=== PATIENT | female | born 1940 | race Caucasian/White ===

== ENCOUNTER 2016-10-30 02:11 | Inpatient (IN) | payer MEDICARE, OTHER ==
--- NOTE | ~2016-10-30 | CN ---
Consultation Report [facility] [address] [place]. [address] NAME: HARLEY BOLTON : 42 STATUS : ADM IN [facility]#: [id number] AGE: 76 ADM/REG DATE : 10/30/16 MR#: [id number] REPORT SERV DATE: 10/30/16 DICTATED BY: MARIE ACEVEDO DATE: 10/30/16 REPORT STATUS : Draft TRANSCRIBED BY: MODL DATE: 10/30/16 HOSPITALIST CONSULTATION DATE OF CONSULTATION: 10/30/2016 REASON FOR CONSULTATION: Medical management per Dr. Brady. HISTORY OF PRESENT ILLNESS: This is an alert and oriented 76-year-old female, who is currently in the ER awaiting room assignment for admission to Dr. Brady for a C2 (hangman's) fracture. She has a cervical collar in place and reports good pain control at this time. Her injury occurred due to a low fall from bed to floor this evening. Hospitalist Service has been consulted for medical management during this hospitalization. The patient is a poor historian due to "memory problems" related to possible remote stroke versus brain tumor. She is also currently unaware of her daily medications but confirms her pharmacy was previously [facility] and has recently been changed to [facility] for insurance reasons. The patient is also home O2 dependent for her COPD, on 3 L nasal cannula. At this time, the patient denies all symptoms including denying chest pain, palpitations, dyspnea, headache, loss of consciousness, dizziness, abdominal pain, nausea, vomiting, or pain in her extremities. She denies known syncope or near syncope, headache, dizziness, or LOC prior to the fall at home. The patient reports frequent falls for several years since her brain surgery in 2006. 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 PAST MEDICAL HISTORY: Significant for: 1. COPD. 2. CHF. 3. Atrial fibrillation. 4. PVD. 5. Hypertension. 6. Dyslipidemia. 7. Hypothyroidism. 8. Anemia. 9. Anxiety. 10.CVA versus TIA. 11.Brain tumor. 12.Frequent falls. PAST SURGICAL HISTORY: Significant for: 1. Partial hysterectomy, 1966. 2. Appendectomy, as a child. 3. CABG x3 vessels/cath, 1997. 4. Left carotid endarterectomy, 10/12/2003. 5. Right carotid endarterectomy, 11/26/2003. Consultation Report [place] [id number] [place]. [address] NAME: HARLEY BOLTON : 42 STATUS : ADM IN PAT#: [id number] AGE: 76 ADM/REG DATE : 10/30/16 MR#: [id number] REPORT SERV DATE: 10/30/16 DICTATED BY: MARIE ACEVEDO DATE: 10/30/16 REPORT STATUS : Draft TRANSCRIBED BY: MODL DATE: 10/30/16 6. Craniotomy post traumatic fall, 2008. 7. Multiple cardiac caths with the last one 04/20/2008. 8. Angioplasty, 2008. 9. Open thrombectomy, right femoral-popliteal with stent, 2011. 10.Left lower extremity thrombectomy, 2008. 11.Multiple arteriograms, most recent 2000. 12.Right and left iliofemoral bypass surgeries, both 2001. 13.PTCA, 1998. 14.Aortogram and angioplasty, completed 12/2015. 15.Brain surgery with tumor removal and stent placement. The patient's PCP is Dr. Anita Rizzo, Dr. Funes is her production engine repairer, and her vascular surgeon is Dr. Saini. She denies having a subject scientific research at this time. SOCIAL HISTORY: The patient is and lives with a friend. 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 She quit smoking in approximately 2006 and denies alcohol or illicit drug use. FAMILY HISTORY: Mother and father both had known CAD and are both . ALLERGIES: REPORTED AT THIS TIME NO KNOWN ALLERGIES BUT RECORDS REVIEW INDICATES PREVIOUS ALLERGIES TO SHELLFISH AND CODEINE. HOME MEDICATIONS: The patient is unaware of her current home medications. She reports her pharmacy has recently been changed from [facility] to [facility]. Most recent inpatient record was reviewed as well. With those, medications included: 1. Xanax 1 mg p.o. b.i.d. to t.i.d. p.r.n. anxiety, confirmed by [facility] at today's date. 2. Wellbutrin XL 150 mg p.o. q.a.m., confirmed by [facility] as of today's date. 3. Lortab 7.5/325 one p.o. daily, confirmed by [facility] on today's date. 4. Coreg 25 mg p.o. b.i.d. 5. Xarelto 20 mg p.o. daily. 6. Lipitor 20 mg p.o. at bedtime. 7. Norvasc 10 mg p.o. daily. 8. L-thyroxine 75 mg p.o. q.a.m. 9. Lasix 80 mg p.o. daily. 10.ProAir inhaler 2 puffs q.4 hours p.r.n. 11.Spiriva HandiHaler one cap inhaled daily. 12.Klor-Con 10 mEq p.o. q.a.m. 13.Nexium 40 mg p.o. daily. 14.Aricept 10 mg p.o. at bedtime. 15.Aspirin 325 mg p.o. daily. REVIEW OF SYSTEMS: A complete 10-point review of systems was negative except as per HPI. Consultation Report [address] [place]. [address] NAME: HARLEY BOLTON : 42 STATUS : ADM IN PAT#: [id number] AGE: 76 ADM/REG DATE : 10/30/16 MR#: [id number] REPORT SERV DATE: 10/30/16 DICTATED BY: MARIE ACEVEDO DATE: 10/30/16 REPORT STATUS : Draft TRANSCRIBED BY: YAMILET DATE: 10/30/16 PHYSICAL EXAMINATION: VITAL SIGNS: T 97.7, P 95, RR 14, BP 134/53, and SpO2 of 94% on 3 L nasal cannula. GENERAL: A well-appearing female in no acute distress. NEUROLOGIC: Alert and oriented x3 without focal deficit. HEENT: Normocephalic. Dried blood noted at mouth without visible trauma. No broken teeth noted. No open wounds noted. NECK: Supple. No JVD. C-collar in place. LUNGS: CTA in all lung cooley. Diminished in bilateral bases with normal respiratory effort. CV: Irregular rhythm, controlled rate. S1, S2 auscultated. ABDOMEN: Soft, round, nontender. Bowel sounds active in all quadrants. No masses. EXTREMITIES: No cyanosis or edema. Cap refill within normal limits. PSYCHIATRIC: Normal affect. SKIN: Clean, dry, and intact with mucous membranes pink and moist. PERTINENT LABORATORY DATA: Potassium low at 3.3. PERTINENT IMAGING: CT confirms C2 fracture/hangman's fracture. EKG, per the ER physician read, shows controlled atrial fibrillation. Previous echo documented on 11/26/2015 shows LVEF 44.8%. ASSESSMENT AND PLAN: 1. Chronic obstructive pulmonary disease, this is chronic and the patient is home O2 dependent. We will continue her home medications once they are confirmed, place her on a bronchodilator protocol while here, and place her on oxygen to maintain a sat of greater than or equal to 92%. 2. Congestive heart failure, again this is chronic with the last noted EF of approximately 45% in 2016. Again, once home medications are confirmed, we will continue those home medications. At this time, we will start her on Coreg 12.5 mg p.o. b.i.d. We will put her on med/surg telemetry and we will monitor her labs. 3. Atrial fibrillation. This is chronic and controlled. We will hold her Xarelto for possible surgery. Once home medications are confirmed and it is safe to restart those, we will continue her home medications again having her on med/surg telemetry and monitoring her labs. 4. Anxiety, this is chronic. We will continue her home medications, provide p.r.n. support, and monitor her throughout this stay. 5. Peripheral vascular disease, this is chronic. Again, once home medications are confirmed, we will continue those. Start medications as per her most recent list at this time and monitor her labs. 6. Anemia, again this is chronic, and as above, we will continue her home medications once they are confirmed. We will also monitor her labs and transfusing as necessary. 7. Dyslipidemia, again this is chronic. We will continue the medications as per her most recent list and monitor her labs making any changes as needed once home medications are confirmed. 8. Hypertension, again this is chronic. We will plan to continue her home medications as Consultation Report [address] [place]. [address] NAME: HARLEY BOLTON : 42 STATUS : ADM IN PAT#: [id number] AGE: 76 ADM/REG DATE : 10/30/16 MR#: [id number] REPORT SERV DATE: 10/30/16 DICTATED BY: MARIE ACEVEDO DATE: 10/30/16 REPORT STATUS : Draft TRANSCRIBED BY: YAMILET DATE: 10/30/16 per her most recent list making any changes as needed once home medications are confirmed, we will monitor her labs and provide p.r.n. coverage for her blood pressure. 9. Hypothyroidism, again this is chronic. We are unable to determine when her most recent lab levels were checked. We will monitor those lab levels and add home medications once those have been resulted, we will monitor her closely with this. 10.Cerebrovascular accident versus transient ischemic attack, there is a remote history of this with no residual deficits except for possible "memory problems." We will monitor her carefully, place her on med/surg telemetry, and continue home medications per the most recent list updating as needed once home medications are confirmed. 11.Brain tumor, again this is remote. With the patient reporting frequent falls and "memory problems" as a result of this, we will monitor her closely, make sure she is on strict fall precautions. At this time, she is noted to be on bed rest per Dr. Brady. We will monitor her closely for this and obtain imaging as necessary and indicated. Thank you for this consult. We are pleased to follow this patient with you. This consult was completed through thorough review of [facility], old records, [facility], and current chart as well as thorough and appropriate interview with the patient. [facility]/YAMILET Marie Acevedo NP / [id number] CC: Gary Nickerson II, MD
--- NOTE | ~2016-10-30 | DS ---
Discharge Summary [facility] [address] [place]. [address] NAME: HARLEY BOLTON : 42 STATUS : DIS IN PAT#: [id number] AGE: 76 ADM/REG DATE : 10/30/16 MR#: [id number] REPORT SERV DATE: 11/16/16 DICTATED BY: MARIA FERNANDA BRADY II DATE: 11/15/16 REPORT STATUS : Draft TRANSCRIBED BY: YAMILET DATE: 11/15/16 Data Collection from hospitalization DISCHARGE DIAGNOSES: 1. Fall with C2 fracture. 2. Hypertension. 3. Chronic obstructive pulmonary disease. 4. Congestive heart failure. 5. Atrial fibrillation. 6. Peripheral vascular disease. 7. Hypothyroidism. 8. Anemia. 9. History of brain tumor. 10.Former smoker. CONSULTATIONS: Marie Acevedo NP PROCEDURES PERFORMED: 1. CT scan of the brain without contrast on 10/30/2016. 2. CT scan of the cervical spine without contrast on 10/30/2016. 3. CTA of the neck on 10/30/2016. MEDICATIONS: ProAir two puffs via inhaler every four hours as needed, Xanax 1 mg three times a day as needed, Norvasc 10 mg daily, Lipitor 20 mg at bedtime, Wellbutrin XL 150 mg daily, Coreg 25 mg twice a day, vitamin D 5000 units daily, Colace 100 mg twice a day, Nexium 40 mg daily, Prozac 60 mg daily, Lasix 40 mg daily, levothyroxine 75 mcg daily, Nitrostat 0.4 mg sublingually as needed, K-Lyte/Cl 25 mEq daily, Xarelto as instructed, Spiriva HandiHaler one capsule via inhaler daily, vitamin E 600 units daily, and Percocet 5 mg every six hours as needed for pain. CONDITION AT DISCHARGE: Stable. DISPOSITION: The patient was discharged home to be followed by home health care on a regular diet with activities as instructed. She would follow up with me three weeks following discharge. She would follow up with Dr. Lori Rizzo two weeks following discharge. She would follow up with her fuel verification technician four to eight weeks following discharge and would have an outpatient sleep study four to eight weeks following discharge. HOSPITAL COURSE: This is a 76-year-old female who lives in [place] and fell out of bed. She reported severe neck pain. She denied any radiating arm pain or weakness in her arms that was of new onset. She was felt to likely have osteoporosis and a C2 fracture. She is not a very good surgical candidate. We would prefer to try and treat her nonoperatively. Her living situation was not ideal to be able to return straight home following the hospital and she may need to go to inpatient rehabilitation. She was admitted to the hospital at this time for further evaluation and treatment. Upon admission, she was seen by Marie Acevedo regarding medical management. A cervical collar was in place. She reported good pain control. She had reported frequent falls since Discharge Summary [place] [id number] [facility] [place]. [address] NAME: HARLEY BOLTON : 42 STATUS : DIS IN PAT#: [id number] AGE: 76 ADM/REG DATE : 10/30/16 MR#: [id number] REPORT SERV DATE: 11/16/16 DICTATED BY: MARIA FERNANDA BRADY II DATE: 11/15/16 REPORT STATUS : Draft TRANSCRIBED BY: YAMILET DATE: 11/15/162006 when she had brain surgery. She does have a history of neuropathy in her toes and feet due to vascular disease. CT scan confirmed C2 fracture. EKG showed controlled atrial fibrillation. She is home O2 dependent. Her home medications were going to be continued. She was placed on bronchodilator protocol. She would be placed on oxygen to maintain saturation greater than or equal to 92%. She was started on Coreg. Xarelto was held. She would be transfused as necessary. Speech/Language Pathology performed a bedside swallow study. Aspiration precautions were in place. She had no overt signs or symptoms of aspiration. The following day, telemetry revealed atrial fibrillation. The patient usually takes sublingual nitroglycerin at home two nights per week for chest pain. Subcutaneous heparin was going to be given for DVT prophylaxis. Xarelto was held. Her chest pain had resolved. On 11/01/2016, she was resting comfortably. She complained of severe neck pain. Potassium supplementation was given. Xanax was adjusted. On 11/02/2016, she denied chest pain or shortness of breath. She continued to complain of neck pain. She had good oral intake. She continued to progress. Discharge planning was performed. Xarelto was restarted at a decreased dose. H and H remained stable. She refused to consider rehabilitation and wanted to go home. She was evaluated by Physical Therapy. She was encouraged to at least get a Life Alert. She reported little benefit from Percocet. She preferred to be back on her home regimen of hydrocodone and Xanax. The collar was going to remain in place. On 11/04/2016, she said she was feeling better. She was more alert. She had a new neck brace in place. Discharge instructions were given. Due to her improved and stable condition, she was discharged home with the above-stated instructions. Information collected by: Alexsandra Braun I submit the above information as my discharge summary. TG/MODL Maria Fernanda Brady II, M.D. / [id number] CC: Gary Nickerson II, MD
--- NOTE | ~2016-10-30 | HP ---
History And Physical [place] [id number] [facility] [place]. [address] NAME: HARLEY BOLTON : 42 STATUS : ADM IN [facility]#: [id number] AGE: 76 ADM/REG DATE : 10/30/16 MR#: [id number] REPORT SERV DATE: 10/31/16 DICTATED BY: MARIA FERNANDA BRADY II DATE: 10/31/16 REPORT STATUS : Draft TRANSCRIBED BY: YAMILET DATE: 10/31/16 DATE OF ADMISSION: 10/30/2016 CHIEF COMPLAINT: Neck pain. HISTORY OF PRESENT ILLNESS: A friendly 76-year-old female, who lives in [place], who fell out of bed. She reports severe neck pain. She denies any radiating arm pain or weakness in her arms that is new onset. PAST MEDICAL HISTORY: COPD, CHF, atrial fib, PVD, hypertension, hypothyroidism, anemia, anxiety, history of brain tumor, and frequent falls. SOCIAL HISTORY: She is and lives with a friend in [place]. She quit smoking. REVIEW OF SYSTEMS: Please see the ER triage sheet dated 10/30/2016. I have reviewed it and agree with it. MEDICATIONS: Please see the MAR. PHYSICAL EXAMINATION: GENERAL: Reveals a female, in no acute distress. She is awake, alert, and oriented. She is on nasal cannula. She is overall in no acute distress. NEUROLOGIC: She is awake, alert, oriented and moving all extremities well. NECK: Her neck is in a collar. CHEST: Reveals no stridor on inspiration or expiration. CARDIOVASCULAR: Regular rate and when I palpate the radial pulse. ABDOMEN: Soft. SKIN: Intact. PSYCHIATRIC: Normal affect. CT scan shows a type 3 odontoid fracture with approximately 3 mm of anterior translation, but there is also a pedicle fracture. ASSESSMENT AND PLAN: 76-year-old female with likely osteoporosis and a C2 fracture. She is not a very good surgical candidate. I would prefer to try and treat her nonoperatively. Her living situation is not ideal to be able to return straight home following the hospital, so she may need to go to inpatient rehab. We will plan on having Physical Therapy see her and however, we will consider surgery as a last resort. [facility]/YAMILET Maria Fernanda Brady II, M.D. History And Physical [address] [place] [address] NAME: HARLEY BOLTON : 42 STATUS : ADM IN PAT#: [id number] AGE: 76 ADM/REG DATE : 10/30/16 MR#: [id number] REPORT SERV DATE: 10/31/16 DICTATED BY: MARIA FERNANDA BRADY II DATE: 10/31/16 REPORT STATUS : Draft TRANSCRIBED BY: MODL DATE: 10/31/16 / [id number] CC: Gary Nickerson II, MD
[2016-10-30 01:57] LABS: BASOPHILS 0.1 %; BASOPHILS ABSOLUTE 0.01 10/3/uL (0.0-0.16); EOSINOPHILS 1.9 %; EOSINOPHILS ABSOLUTE 0.15 10/3/uL (0.0-0.53); HEMOGLOBIN 9.2 g/dL (12.0-16.0); IMMATURE GRANULOCYTES 0.4 %; IMMATURE GRANULOCYTES ABSOLUTE 0.03 10/3/uL (0.0-0.11); LYMPHOCYTES 10.2 %; MEAN CORPUS HGB CONC 30.7 g/dL (32.0-36.0); MEAN CORPUSCULAR HEMOGLOB 25.3 pg (26.0-34.0); MEAN CORPUSCULAR VOLUME 82.4 fL (80-100); MONOCYTES 6.9 %; MONOCYTES ABSOLUTE 0.54 10/3/uL (0.21-1.20); NEUTROPHILS 80.5 %; NEUTROPHILS ABSOLUTE 6.31 10/3/uL (2.02-8.40); PLATELET COUNT 211 10/3/uL (150-400); RBC DISTRIBUTION WIDTH 15.7 % (12.0-16.0); RED CELL COUNT 3.64 10/6/uL (4.0-5.6); WHITE BLOOD CELLS 7.8 10/3/uL (4.5-10.5)
[2016-10-30 01:58] LABS: MANUAL DIFF NO %
[~2016-10-30 02:11] MED LIST: ALPRAZOLAM ODT1 MG PO; AMLODIPINE10 M1 PO; ARICEPT10 PO; ASA5GR PO; C5 PO; CAT1 PO; COREG25 PO; COUMADIN3 MG PO; COUMADIN6 MG PO; DIOVAN PO; DIOVAN320 MG PO; DITRO5 PO; ENABLEX7.5 PO; HYDROCODONE PO; IRON; JANTOVEN5 MG PO; JANTOVEN7.5 MG PO; KDUR10 PO; KLOR-CON 1010 MEQ PO; L-THYROXINE PO; L20 PO; L40 PO; L80 PO; LEVAQUIN750 MG PO; LEVOTHYROXIN50 MCG PO; LEVOTHYROXIN75 MCG PO; LIPITOR20 PO; LIPITOR40 PO; LORTAB 5 PO; NEXIUM40 PO; NITROSTAT0.4 MG SL; NORCO1 TAB PO; NORV10 PO; PROAIR HFA INH; PROVHFA INH; PROZAC PO; PULRESP.5 INH; SPIRIVA INH; STERAPRED DS10 MG; SYN.05 PO; SYN075 PO; VENTOLIN HFA INH; VITAMIN D31000 UNIT PO; XANAX1 MG PO; XARELTO20 MG PO; [UNRECOGNIZED DRUG - OTHER]; [UNRECOGNIZED DRUG - OTHER] PO
[2016-10-30 02:14] LABS: A/G RATIO 1.1 (0.7-1.9); ALBUMIN 3.6 G/DL (3.5-5.0); BUN (BLOOD UREA NITROGEN) 17 MG/DL (6-23); CALCIUM, SERUM 8.3 MG/DL (8.5-10.4); CHLORIDE, SERUM 105 MMOL/L (96-112); CO2 (CARBON DIOXIDE) 27 MMOL/L (24-34); CREATININE 0.99 MG/DL (0.55-1.02); GFR AFRICAN AMERICAN 65 ML/MIN (>=60); GFR NON AFRICAN AMERICAN 56 ML/MIN (>=60); GLOBULIN 3.3 G/DL (2.5-4.1); GLUCOSE, SERUM 123 MG/DL (60-99); POTASSIUM, SERUM 3.3 MMOL/L (3.5-5.3); SGOT(AST) 23 U/L (5-40); SGPT(ALT) 27 U/L (5-65); SODIUM, SERUM 144 MMOL/L (135-148); TOTAL PROTEIN 6.9 G/DL (6.0-8.5)
[2016-10-30 02:15] LABS: ALKALINE PHOSPHATASE 92 U/L (45-117); TOTAL BILIRUBIN 0.5 MG/DL (0-1.2)
[2016-10-30 02:17] LABS: ASCORBIC ACID (UR NOT ORDER) NEG (NEG); BILIRUBIN, URINE NEGATIVE (NEG); ER URINALYSIS TAT 0 Hrs 00 Mins; KETONE, URINE NEGATIVE (NEG); LEUKOCYTE ESTERASE(NOT OR NEG (NEG); NITRITE (URINE) NEG (NEG); WBC (NOT ORDERED) (RFLEX) 1 (0-5)
[2016-10-30] MEDS ORDERED: *UNABLE3 (05:20)
[2016-10-30] MEDS ORDERED: PROAIR HFA INH (16:54)
[2016-10-30] MEDS ORDERED: NORV10 PO (16:54)
[2016-10-30] MEDS ORDERED: XANAX1 MG PO (16:54)
[2016-10-30] MEDS ORDERED: L40 PO (16:55)
[2016-10-30] MEDS ORDERED: COREG25 PO (16:55)
[2016-10-30] MEDS ORDERED: NEXIUM40 PO (16:55)
[2016-10-30] MEDS ORDERED: LIPITOR20 PO (16:55)
[2016-10-30] MEDS ORDERED: WELLXL150 PO (16:55)
[2016-10-30] MEDS ORDERED: PROZAC PO (16:55)
[2016-10-30] MEDS ORDERED: LEVOTHYROXIN75 MCG PO (16:56)
[2016-10-30] MEDS ORDERED: KLYTECL PO (16:56)
[2016-10-30] MEDS ORDERED: XARELTO15 MG (16:56)
[2016-10-30] MEDS ORDERED: NORCO1 TA2 PO (16:56)
[2016-10-30] MEDS ORDERED: NITROSTAT0.4 MG SL (16:56)
[2016-10-30] MEDS ORDERED: VITE PO (16:57)
[2016-10-30] MEDS ORDERED: D 5000 PO (16:57)
[2016-10-30] MEDS ORDERED: SPIRIVA INH (16:58)
[2016-10-30 19:39] LABS: ALLENS TEST Pos; BE (BASE EXCESS) 0.5 MEQ/L (0 +/- 2.5); CARBOXYHEMOGLOBIN 0.3 % (0-3); DEVICE NC; HCO3 (ACTUAL BICARBONATE) 25.7 MEQ/L (23-27); HEMOBLOGIN CONTENT 9.7 G/DL (12-16); INSTRUMENT SERIAL # 8083; METHEMOGLOBIN 0.3 % (0-3); O2 CONTENT 12.5 VOL% (18-24); OPERATOR ID 17370; PCO2 (CO2 TENSION) 44 MMHG (35-45); PO2 (O2 TENSION) 65 MMHG (79-93); SAMPLE Arterial; pH 7.38 (7.37-7.43)
[2016-10-30 19:57] LABS: BASOPHILS 0.1 %; BASOPHILS ABSOLUTE 0.01 10/3/uL (0.0-0.16); EOSINOPHILS 2.4 %; EOSINOPHILS ABSOLUTE 0.17 10/3/uL (0.0-0.53); HEMATOCRIT 29.5 % (36.0-48.0); HEMOGLOBIN 9.2 g/dL (12.0-16.0); IMMATURE GRANULOCYTES 0.3 %; IMMATURE GRANULOCYTES ABSOLUTE 0.02 10/3/uL (0.0-0.11); LYMPHOCYTES 13.3 %; LYMPHOCYTES ABSOLUTE 0.96 10/3/uL (0.67-4.30); MEAN CORPUS HGB CONC 31.2 g/dL (32.0-36.0); MEAN CORPUSCULAR HEMOGLOB 25.7 pg (26.0-34.0); MEAN CORPUSCULAR VOLUME 82.4 fL (80-100); MEAN PLATELET VOLUME 10.5 fL (9.2-13.0); MONOCYTES 8.7 %; MONOCYTES ABSOLUTE 0.63 10/3/uL (0.21-1.20); NEUTROPHILS 75.2 %; NEUTROPHILS ABSOLUTE 5.43 10/3/uL (2.02-8.40); PLATELET COUNT 195 10/3/uL (150-400); RBC DISTRIBUTION WIDTH 15.8 % (12.0-16.0); RED CELL COUNT 3.58 10/6/uL (4.0-5.6); WHITE BLOOD CELLS 7.2 10/3/uL (4.5-10.5)
[2016-10-30 20:00] LABS: MANUAL DIFF NO %
[2016-10-30 20:15] LABS: CALCIUM, SERUM 8.3 MG/DL (8.5-10.4); CHLORIDE, SERUM 106 MMOL/L (96-112); CO2 (CARBON DIOXIDE) 26 MMOL/L (24-34); CREATININE 0.75 MG/DL (0.55-1.02); GFR AFRICAN AMERICAN 90 ML/MIN (>=60); GFR NON AFRICAN AMERICAN 78 ML/MIN (>=60); POTASSIUM, SERUM 3.4 MMOL/L (3.5-5.3); SODIUM, SERUM 141 MMOL/L (135-148); TROPONIN I <0.02 NG/ML (<0.05)
[2016-10-30 20:16] LABS: BUN (BLOOD UREA NITROGEN) 9 MG/DL (6-23); GLUCOSE, SERUM 96 MG/DL (60-99)
[2016-10-31 04:28] LABS: BASOPHILS 0.1 %; BASOPHILS ABSOLUTE 0.01 10/3/uL (0.0-0.16); EOSINOPHILS 2.1 %; EOSINOPHILS ABSOLUTE 0.15 10/3/uL (0.0-0.53); HEMATOCRIT 30.3 % (36.0-48.0); HEMOGLOBIN 9.4 g/dL (12.0-16.0); IMMATURE GRANULOCYTES 0.3 %; IMMATURE GRANULOCYTES ABSOLUTE 0.02 10/3/uL (0.0-0.11); LYMPHOCYTES 11.4 %; MANUAL DIFF NO %; MEAN CORPUSCULAR HEMOGLOB 25.8 pg (26.0-34.0); MEAN CORPUSCULAR VOLUME 83.2 fL (80-100); MEAN PLATELET VOLUME 10.9 fL (9.2-13.0); MONOCYTES ABSOLUTE 0.49 10/3/uL (0.21-1.20); NEUTROPHILS 79.1 %; NEUTROPHILS ABSOLUTE 5.56 10/3/uL (2.02-8.40); PLATELET COUNT 195 10/3/uL (150-400); RBC DISTRIBUTION WIDTH 15.5 % (12.0-16.0); RED CELL COUNT 3.64 10/6/uL (4.0-5.6)
[2016-10-31 04:33] LABS: INTERNATIONAL NORMAL RATI 1.2 UNITS (-); PARTIAL THROMBO TIME 28.7 SEC (22.5-37.2)
[2016-10-31 04:34] LABS: PROTIME (NOT ORD) 14.6 SEC (12.0-14.5)
[2016-10-31 04:50] LABS: ALBUMIN 3.4 G/DL (3.5-5.0); ALKALINE PHOSPHATASE 94 U/L (45-117); BUN (BLOOD UREA NITROGEN) 9 MG/DL (6-23); CALCIUM, SERUM 8.1 MG/DL (8.5-10.4); CHLORIDE, SERUM 102 MMOL/L (96-112); CO2 (CARBON DIOXIDE) 30 MMOL/L (24-34); CREATININE 0.84 MG/DL (0.55-1.02); GFR AFRICAN AMERICAN 79 ML/MIN (>=60); GFR NON AFRICAN AMERICAN 68 ML/MIN (>=60); GLOBULIN 3.4 G/DL (2.5-4.1); GLUCOSE, SERUM 105 MG/DL (60-99); POTASSIUM, SERUM 3.1 MMOL/L (3.5-5.3); SGOT(AST) 23 U/L (5-40); SGPT(ALT) 26 U/L (5-65); SODIUM, SERUM 141 MMOL/L (135-148); TOTAL PROTEIN 6.8 G/DL (6.0-8.5); TROPONIN I 0.02 NG/ML (<0.05)
[2016-10-31 04:59] LABS: TOTAL BILIRUBIN 1.1 MG/DL (0-1.2)
[2016-11-01 09:48] LABS: BASOPHILS 0.2 %; BASOPHILS ABSOLUTE 0.01 10/3/uL (0.0-0.16); EOSINOPHILS 2.8 %; EOSINOPHILS ABSOLUTE 0.18 10/3/uL (0.0-0.53); HEMOGLOBIN 10.6 g/dL (12.0-16.0); IMMATURE GRANULOCYTES 0.2 %; IMMATURE GRANULOCYTES ABSOLUTE 0.01 10/3/uL (0.0-0.11); LYMPHOCYTES 8.7 %; LYMPHOCYTES ABSOLUTE 0.57 10/3/uL (0.67-4.30); MEAN CORPUS HGB CONC 30.8 g/dL (32.0-36.0); MEAN CORPUSCULAR HEMOGLOB 25.4 pg (26.0-34.0); MEAN CORPUSCULAR VOLUME 82.3 fL (80-100); MEAN PLATELET VOLUME 10.8 fL (9.2-13.0); MONOCYTES 9.5 %; MONOCYTES ABSOLUTE 0.62 10/3/uL (0.21-1.20); NEUTROPHILS 78.6 %; NEUTROPHILS ABSOLUTE 5.13 10/3/uL (2.02-8.40); PLATELET COUNT 231 10/3/uL (150-400); RBC DISTRIBUTION WIDTH 15.5 % (12.0-16.0); RED CELL COUNT 4.18 10/6/uL (4.0-5.6); WHITE BLOOD CELLS 6.5 10/3/uL (4.5-10.5)
[2016-11-01 09:55] LABS: HEMATOCRIT 34.4 % (36.0-48.0); MANUAL DIFF NO %
[2016-11-01 09:59] LABS: BUN (BLOOD UREA NITROGEN) 8 MG/DL (6-23); CALCIUM, SERUM 8.8 MG/DL (8.5-10.4); CHLORIDE, SERUM 96 MMOL/L (96-112); CO2 (CARBON DIOXIDE) 32 MMOL/L (24-34); CREATININE 0.73 MG/DL (0.55-1.02); GFR AFRICAN AMERICAN 93 ML/MIN (>=60); GFR NON AFRICAN AMERICAN 81 ML/MIN (>=60); GLUCOSE, SERUM 96 MG/DL (60-99); SODIUM, SERUM 138 MMOL/L (135-148)
[2016-11-01 10:01] LABS: POTASSIUM, SERUM 2.9 MMOL/L (3.5-5.3)
[2016-11-02 07:39] LABS: BUN (BLOOD UREA NITROGEN) 11 MG/DL (6-23); CALCIUM, SERUM 8.9 MG/DL (8.5-10.4); CHLORIDE, SERUM 99 MMOL/L (96-112); CO2 (CARBON DIOXIDE) 32 MMOL/L (24-34); CREATININE 0.87 MG/DL (0.55-1.02); GFR AFRICAN AMERICAN 76 ML/MIN (>=60); GFR NON AFRICAN AMERICAN 65 ML/MIN (>=60); GLUCOSE, SERUM 94 MG/DL (60-99); POTASSIUM, SERUM 3.7 MMOL/L (3.5-5.3); SODIUM, SERUM 139 MMOL/L (135-148)
[2016-11-03 07:16] LABS: BASOPHILS 0.2 %; BASOPHILS ABSOLUTE 0.01 10/3/uL (0.0-0.16); EOSINOPHILS ABSOLUTE 0.26 10/3/uL (0.0-0.53); HEMATOCRIT 33.8 % (36.0-48.0); HEMOGLOBIN 10.3 g/dL (12.0-16.0); IMMATURE GRANULOCYTES 0.2 %; IMMATURE GRANULOCYTES ABSOLUTE 0.01 10/3/uL (0.0-0.11); LYMPHOCYTES 10.9 %; MEAN CORPUS HGB CONC 30.5 g/dL (32.0-36.0); MEAN CORPUSCULAR HEMOGLOB 25.4 pg (26.0-34.0); MEAN CORPUSCULAR VOLUME 83.5 fL (80-100); MEAN PLATELET VOLUME 10.6 fL (9.2-13.0); MONOCYTES 9.6 %; MONOCYTES ABSOLUTE 0.62 10/3/uL (0.21-1.20); NEUTROPHILS 75.1 %; NEUTROPHILS ABSOLUTE 4.85 10/3/uL (2.02-8.40); PLATELET COUNT 209 10/3/uL (150-400); RBC DISTRIBUTION WIDTH 15.7 % (12.0-16.0); RED CELL COUNT 4.05 10/6/uL (4.0-5.6); WHITE BLOOD CELLS 6.5 10/3/uL (4.5-10.5)
[2016-11-03 07:19] LABS: MANUAL DIFF NO %
[2016-11-03 07:32] LABS: BUN (BLOOD UREA NITROGEN) 19 MG/DL (6-23); CALCIUM, SERUM 8.3 MG/DL (8.5-10.4); CHLORIDE, SERUM 98 MMOL/L (96-112); CO2 (CARBON DIOXIDE) 32 MMOL/L (24-34); GFR AFRICAN AMERICAN 57 ML/MIN (>=60); GFR NON AFRICAN AMERICAN 49 ML/MIN (>=60); GLUCOSE, SERUM 90 MG/DL (60-99); POTASSIUM, SERUM 3.7 MMOL/L (3.5-5.3); SODIUM, SERUM 137 MMOL/L (135-148)
[2016-11-03] MEDS ORDERED: DSS PO (13:11)
[2016-11-04] MEDS ORDERED: PROAIR HFA INH (12:04)
[2016-11-04] MEDS ORDERED: PCET PO (15:20)
== END 2016-11-04 16:07 | disposition home or self-care (01) | DRG 552 ==
LOC: ER 02:11 → 1SO 05:07
PROVIDERS: Hospitalist; Nurse Practitioner; Nurse Practitioner Acute Care; Orthopaedic Surgery
DX: S12.100A Unspecified displaced fracture of second cervical vertebra, initial encounter for closed fracture (principal); J96.11 Chronic respiratory failure with hypoxia; I11.0 Hypertensive heart disease with heart failure; Z99.81 Dependence on supplemental oxygen; I50.22 Chronic systolic (congestive) heart failure; I48.91 Unspecified atrial fibrillation; J44.9 Chronic obstructive pulmonary disease, unspecified; I73.9 Peripheral vascular disease, unspecified; E03.9 Hypothyroidism, unspecified; D63.8 Anemia in other chronic diseases classified elsewhere; R29.6 Repeated falls; F41.9 Anxiety disorder, unspecified; E78.5 Hyperlipidemia, unspecified; W06.XXXA Fall from bed, initial encounter; Z79.01 Long term (current) use of anticoagulants; Z79.82 Long term (current) use of aspirin; Z79.899 Other long term (current) drug therapy; Z91.81 History of falling; Z87.891 Personal history of nicotine dependence; Z95.1 Presence of aortocoronary bypass graft
CPT/HCPCS: 36600; 70450; 70498; 71010; 72125; 80048; 80053; 81001; 82805; 83735; 83880; 84132; 84443; 84484; 85025; 85610; 85730; 92610-GN; 93005; 97116-GP; 97162-GP; 97530-GP; 99285; A9270-GY; G8978-CK-GP; G8979-CL-GP; G8996-CI-GN; G8997-CI-GN; G8998-CI-GN; J2405; Q9967